=== PATIENT | female | born 1940 | race Caucasian/White ===

== ENCOUNTER 2017-05-25 01:27 | Emergency (ER) | payer OTHER, BC ==
[~2017-05-25] VITALS: Ht 160 cm; Wt 67.9 kg
[2017-05-25] MEDS ORDERED: ROBAXIN750 MG PO (02:50)
[2017-05-25 03:04] VITALS: BP 132/74
== END 2017-05-25 03:04 | disposition home or self-care (01) ==
LOC: EME 01:27 → EXP 01:27
DX: M54.6 Pain in thoracic spine (principal); M62.830 Muscle spasm of back
CPT/HCPCS: 99281; 99283